=== PATIENT | female | born 1975 | race Caucasian/White ===

== ENCOUNTER → 2020-11-12 14:58 | Outpatient (CLI) | payer OTHER, SELFPAY ==
[2020-11-12] MEDS: COVID-19 VACC #1, MRNA(MOD) 100 MCG/0.5 ML VIAL IM (15:14)
== END ==
PROVIDERS: PCP Specialist; Visit Provider Internal Medicine
DX: Z23 Encounter for immunization (principal)
CPT/HCPCS: 0011A; 91301

== ENCOUNTER → 2020-12-10 14:57 | Outpatient (CLI) | payer OTHER, SELFPAY ==
[2020-12-10] MEDS: COVID-19 VACC #2, MRNA(MOD) 100 MCG/0.5 ML VIAL IM (15:04)
== END ==
PROVIDERS: PCP Specialist; Visit Provider Internal Medicine
DX: Z23 Encounter for immunization (principal)
CPT/HCPCS: 0012A; 91301

== ENCOUNTER → 2021-09-09 14:19 | Outpatient (CLI) | payer OTHER, SELFPAY | PROVIDERS: PCP Specialist; Referring Provider Specialist; Visit Provider Specialist | DX: N39.0 Urinary tract infection, site not specified (principal) | CPT/HCPCS: 87077; 87086; 87186 ==

== ENCOUNTER → 2024-08-17 15:03 | Outpatient (CLI) | payer OTHER, SELFPAY ==
--- NOTE | 2024-08-17 15:04 | DI.US.S_ITS ---
PROCEDURE: US PELVIC COMPLETE INDICATIONS: AUB, r/o structural etiology TECHNIQUE: Real-time scanning was performed of the pelvic organs, with image documentation. Additional endovaginal scanning was necessary due to incomplete visualization of the adnexal and endometrial structures by transabdominal scanning. COMPARISON: None. FINDINGS: Uterus: Uterus is anteverted and normal in size at 10.0 x 5.1 x 6.9 cm. The myometrium is heterogeneous. The endometrium measures 15.2 mm combined thickness. Cervical polyp measuring 8 x 4 x 6 millimeters with vascularity. Ovaries: The right ovary measures 3.0 x 2.3 x 1.5 cm, with a calculated ovarian volume of 5.5 cc. Simple cyst measuring 2 x 2 x 2 centimeters. The left ovary measures 1.3 x 1.3 x 2.5 cm, with a calculated ovarian volume of 2.2 cc. The ovaries have a normal sonographic appearance. Less than 12 follicles can be seen in each ovary. No adnexal masses are seen. Other: No pathologic free abdominal or pelvic fluid. Dilated uterine vessels are noted. IMPRESSION: Cervical polyp measuring 8 millimeters. Recommend gynecologic exam. Prominent uterine vessels, correlate for signs of pelvic congestion syndrome. Endometrium measures 15.2 millimeters, recommend correlation with menopausal status and follow-up ultrasound or endometrial sampling as clinically indicated as this is prominent for a premenopausal female. Right ovarian simple cyst measuring 2 centimeters. We strive to produce accurate, complete, and clear reports of imaging services. To assist us in improving patient care, this report was composed using standard report templates and voice recognition software. Therefore, it may contain abnormal punctuation, insertions and/or omissions. Occasional wrong-word or sound-alike substitutions may occur. Though we review the report and make efforts to correct it, we do recommend that the report be read carefully in proper context to recognize any text inaccuracies. Dictated by: Vernon Acosta M.D. on 08/17/2024 at 16:38 Approved by: Vernon Acosta M.D. on 08/17/2024 at 16:42
== END ==
PROVIDERS: PCP Nurse Practitioner; Referring Provider Obstetrics & Gynecology; Visit Provider Obstetrics & Gynecology
DX: N93.9 Abnormal uterine and vaginal bleeding, unspecified (principal); N84.1 Polyp of cervix uteri; N83.291 Other ovarian cyst, right side
CPT/HCPCS: 76856

== ENCOUNTER 2024-10-08 11:46 | Day surgery (SDC) | payer OTHER, SELFPAY ==
[2024-09-25 14:06] VITALS: BMI 26.8
--- NOTE | 2024-10-08 | PATH_ITS ---
[facility] Accession Number: [id number] No. of containers..01 Tissue . 01 Material submitted: . endometrium - ENDOMETRIAL CONTENTS . 01 Diagnosis: ENDOMETRIAL CONTENTS: Portions of disordered proliferative endometrium with patchy squamous metaplasia; negative for endometrioid intraepithelial neoplasia or malignancy. Some endometrial fragments demonstrate prominent vessels, suggestive of polyp, if clinical and imaging studies are concordant. [facility] 10/11/2024 1333 Local . 01 Electronically signed: . Kellen Holland MD, Pathologist NPI- [id number] . 01 Gross description: . ENDOMETRIAL CONTENTS: Received in formalin are minute fragments of mucoid and hemorrhagic material measuring 3.0 x 3.0 x 0.3 cm in aggregate. Submitted in toto in 1 cassette. /[facility] 10/09/2024 0152 Local . 01 Pathologist provided ICD-10: N85.00 . 01 CPT . 134494 Specimen Comment: A courtesy copy of this report has been sent to [facility]ology Performed at: [address] [address], [place], [place] [id number] MD Bhupinder Cates MD Phone: [phone]
[2024-10-08] MEDS: LACTATED RINGERS 1,000 ML 42 ML IV (12:24)
[2024-10-08] MEDS: ACETAMINOPHEN IV 1,000 MG/100 ML VIAL 400 MG IV (12:31)
[2024-10-08 12:58] VITALS: BP 151/85; PULSE 69; RESP 16; TEMP 37; O2SAT 97; BMI 26.8
--- NOTE | 2024-10-08 13:52 | PM.PREOP ---
Pre-operative Note Interval Note History & Physical reviewed/Exam performed by Physician: Yes Changes to H&P: No H&P completed within 30 days and has changed as indicated here:: 09/03/24, 09/26/24 ASA Class (for procedural sedation): II
--- NOTE | 2024-10-08 14:03 | SUR.OPER ---
Lithotomy on padded OR bed, head on pillow, arms secured on padded arm boards at <90 degrees abduction. Legs secured in padded yellow fins stirrups.
--- NOTE | 2024-10-08 14:37 | PM.OP.1 ---
Operative Date/Time/Diagnoses Date of procedure: 10/08/24 Time of procedure: 14:37 Pre-op diagnosis: AUB Post-op diagnosis: same Procedure & Clinicians Procedure: hysteroscopy, myosure polypectomy, dilation and curettage Same procedure as scheduled: Yes Indications: abnormal uterine bleeding abnormal pelvic ultrasound Surgeon: Neelima Capone Click Yes if Unassisted: Yes Anesthesia Type: General Operative Notes Findings: normal external female genitalia stenotic parous cervix intrauterine cavity with multiple small polyps along posterior aspect bilateral ostia visualized Closure Type: not applicable Specimen(s): other (endometrial contents ) Estimated Blood Loss (mL): 5 Blood products transfused: none Procedure in detail: Pt was taken to the operating room, transferred to OR table and anesthesia was induced with placement of LMA.? Pt had her legs placed in Stephen stirrups and an exam under anesthesia was performed. The patient was prepped and draped in a sterile fashion.? A time out was performed. ?A sterile speculum was inserted into the vagina.? The cervix was visualized and grasped anteriorly using a single tooth tenaculum.? The uterus sounded to 8 cm and the cervical os was serially dilated using Mustafa dilators up to 17f to allow for passage of the hysteroscope.? The 5mm 0 degree hysteroscope was then inserted into the uterus with findings as noted.? The small Myosure device was introduced and the endometrium including visualized pathology was fractionally resected under direct visualization. The hysteroscope was removed and the uterus was sharply curetted until a gritty texture was noted throughout.? The tenaculum was removed and hemostasis was noted at insertion sites.? The speculum was removed and hemostasis was again noted to be excellent.? The patient then had her legs taken out of stirrups.? The patient tolerated the procedure well and without difficulty.? The patient was awakened from anesthesia and taken to PACU in stable condition. Complications: none Post-operative Condition: stable Disposition: PACU Plan for aftercare: anticipate dc to home pending clinical recovery, routine f/u in office as scheduled
[2024-10-08 14:43] VITALS: BP 127/65; PULSE 67; RESP 18; TEMP 36.3; O2SAT 98
[2024-10-08 14:48] VITALS: BP 130/83; PULSE 73; RESP 16; O2SAT 98
[2024-10-08 14:53] VITALS: BP 131/66; PULSE 66; RESP 16; O2SAT 99
[2024-10-08 15:01] VITALS: BP 133/81; PULSE 66; RESP 18; O2SAT 99
== END 2024-10-08 15:25 | disposition home or self-care (01) ==
PROVIDERS: PCP Nurse Practitioner; Referring Provider Obstetrics & Gynecology; Visit Provider Obstetrics & Gynecology
PROC: 0UDB8ZZ Extraction of Endometrium, Via Natural or Artificial Opening Endoscopic (ICD-10-PCS; CPT 58558; principal; 2024-10-08 13:45)
DX: N93.9 Abnormal uterine and vaginal bleeding, unspecified (principal); N88.2 Stricture and stenosis of cervix uteri; N84.0 Polyp of corpus uteri
CPT/HCPCS: 58558; J0131; J1100; J1885; J2250; J2405; J2704